=== PATIENT | female | born 1995 | race Caucasian/White ===

== ENCOUNTER 2022-03-22 03:33 | Emergency (ER) | payer MEDICAID ==
[~2022-03-22] VITALS: Ht 170.2 cm; Wt 72.1 kg
[2022-03-22 04:57] LABS: CLARITY,URINE CLEAR (Clear); COLOR,URINE YELLOW (Yellow); GLUCOSE, URINE NEGATIVE (Neg); KETONES,URINE NEGATIVE (Neg); LEUKOCYTE ESTERASE ,URINE NEGATIVE (Neg); OCCULT BLOOD,URINE NEGATIVE (Neg); PROTEIN,URINE NEGATIVE (Neg); UROBILINOGEN,URINE 0.2 E.U/dL (0.2-1.0)
[2022-03-22 04:58] LABS: UA COLLECTION TYPE CLN CATCH MIDSTREAM
[2022-03-22 05:01] LABS: NITRITES, URINE NEGATIVE (Neg)
[2022-03-22 05:01] LABS: ALANINE AMINOTRANSFERASE 16 U/L (12-78); ALBUMIN 2.7 G/DL (3.4-5.0); ALBUMIN/GLOBULIN RATIO 0.7 (1.1-1.5); ALKALINE PHOSPHATASE 78 IU/L (46-116); ANION GAP 7 (8-16); ASPARTATE AMINO TRANSFERASE 15 U/L (10-37); BILIRUBIN,TOTAL 0.1 MG/DL (0.1-1.0); BLOOD UREA NITROGEN 8 MG/DL (7-18); BUN/CREATININE RATIO 16.7 (6.6-38.0); CALCIUM 8.2 MG/DL (8.5-10.1); CHLORIDE 107 MMOL/L (99-107); CREATININE 0.48 MG/DL (0.40-0.90); GLUCOSE 72 MG/DL (70-104); LIPASE 116 U/L (73-393); POTASSIUM 3.8 MMOL/L (3.5-5.1); SODIUM 140 MMOL/L (135-145); TOTAL PROTEIN 6.5 G/DL (6.4-8.2); eGFR > 90 ML/MIN
[2022-03-22 05:02] LABS: BASOPHILS # (AUTO) 0.1 X10'3 (0-0.2); BASOPHILS % (AUTO) 0.6 % (0-1); EOSINOPHILS # (AUTO) 0.2 X10'3 (0-0.9); EOSINOPHILS % (AUTO) 1.3 % (0-6); HEMATOCRIT 35.6 % (35.0-45.0); HEMOGLOBIN 12.4 g/dl (12.0-16.0); LYMPHOCYTES # (AUTO) 2.7 X10'3 (1.1-4.8); LYMPHOCYTES % (AUTO) 16.8 % (21-51); MEAN CORPUSCULAR HEMOGLOBIN 32.5 PG (27.0-31.0); MEAN CORPUSCULAR HGB CONC 34.7 g/dL (33.0-36.5); MEAN CORPUSCULAR VOLUME 93.4 FL (78-98); MEAN PLATELET VOLUME 7.4 FL (7.4-10.4); MONOCYTES # (AUTO) 0.8 X10'3 (0-0.9); MONOCYTES % (AUTO) 4.9 % (2-12); NEUTROPHILS # (AUTO) 12.3 X10'3 (1.8-7.7); NEUTROPHILS % (AUTO) 76.4 % (42-75); PLATELET COUNT 245 X10'3 (140-440); RED BLOOD COUNT 3.81 X10'6 (4.20-5.60); RED CELL DISTRIBUTION WIDTH 13.1 % (11.5-14.5); WHITE BLOOD COUNT 16.1 X10'3 (4.5-11.0)
[2022-03-22 05:34] VITALS: BP 106/68
[2022-03-22] MEDS ORDERED: LIDOcaine Viscous 15ml cup MM STA (06:54)
[2022-03-22] MEDS ORDERED: acetaminophen 325mg tablet PO ONE (07:05)
[2022-03-22] MEDS ORDERED: penicillin V potassium 500mg tablet PO ONE (07:10)
[2022-03-22] MEDS ORDERED: PENI500T2 PO (07:42)
[2022-03-22] MEDS ORDERED: ANBESOL TP (07:42)
== END 2022-03-22 08:05 | disposition home or self-care (01) ==
LOC: ER 03:34
DX: O26.892 Other specified pregnancy related conditions, second trimester (principal); K08.89 Other specified disorders of teeth and supporting structures; R10.9 Unspecified abdominal pain; M54.9 Dorsalgia, unspecified; Z3A.24 24 weeks gestation of pregnancy; F17.200 Nicotine dependence, unspecified, uncomplicated; Z79.899 Other long term (current) drug therapy
CPT/HCPCS: 36415; 80053; 81003; 83690; 84484; 85025; 87491; 93005; 99284